=== PATIENT | male | born 1960 | race Caucasian/White ===

== ENCOUNTER → 2024-02-16 15:50 | Outpatient (REF) | payer MEDICARE, SELFPAY | LOC: RAD 15:50 | PROVIDERS: ATTENDING PHYSICIAN Student in an Organized Health Care Education/Training Program | DX: M25.512 Pain in left shoulder (principal); M25.551 Pain in right hip | CPT/HCPCS: 73030; 73502 ==

== ENCOUNTER 2024-02-19 14:04 | Outpatient (RCR) | payer MEDICARE, SELFPAY | END 2024-02-19 23:59 | disposition home or self-care (01) | LOC: RPT 14:04 | PROVIDERS: ATTENDING PHYSICIAN Student in an Organized Health Care Education/Training Program | DX: M25.512 Pain in left shoulder (principal); M25.551 Pain in right hip; Z73.6 Limitation of activities due to disability; M62.81 Muscle weakness (generalized) | CPT/HCPCS: 97110; 97162 ==

== ENCOUNTER 2024-02-28 14:01 | Outpatient (RCR) | payer MEDICARE, SELFPAY | END 2024-02-28 23:59 | disposition home or self-care (01) | LOC: RPT 14:01 | PROVIDERS: ATTENDING PHYSICIAN Student in an Organized Health Care Education/Training Program | DX: M25.512 Pain in left shoulder (principal); M25.511 Pain in right shoulder; Z73.6 Limitation of activities due to disability | CPT/HCPCS: 97110; 97112; 97140 ==

== ENCOUNTER 2025-01-08 11:30 | Emergency (ER) | payer MEDICARE, SELFPAY ==
[2025-01-08 11:45] VITALS: BP 154/101
[2025-01-08 12:18] LABS: Hematocrit 39.9 % (39.0-52.0); Hemoglobin 13.8 g/dL (13.0-18.0); Mean Corp Hgb Conc. 34.6 g/dL (33.0-37.0); Mean Corpuscular Hgb 29.3 pg (27.0-31.0); Mean Corpuscular Volume 84.7 fL (80.0-94.0); Platelet Count 276 10^3/uL (130-400); Red Blood Cell Count 4.71 10^6/uL (4.70-6.10); Red Cell Dist. Width 13.5 % (11.5-14.5); White Blood Cell Count 11.6 10^3/uL (4.8-10.8)
[2025-01-08 12:34] LABS: ALT (SGPT) 15 U/L (0-50); AST (SGOT) 19 U/L (17-59); Albumin 4.3 g/dl (3.5-5.0); Alkaline Phosphatase 78 U/L (38-126); Blood Urea Nitrogen 20 mg/dl (9-20); Calcium 9.5 mg/dl (8.4-10.2); Carbon Dioxide 30 mmol/L (22-30); Chloride 100 mmol/L (98-107); Glucose 113 mg/dl (70-99); Potassium 3.9 mmol/L (3.5-5.1); Sodium 139 mmol/L (135-145); Total Bilirubin 0.7 mg/dl (0.2-1.3); Total Protein 8.1 g/dl (6.3-8.2); eGFR > 60.00
--- NOTE | 2025-01-08 13:17 | ED.GENMED ---
History of Present Illness
General
Chief Complaint: Fall
Source: patient
Exam Limitations: none
Time Seen by Provider: 01/08/25 13:13
Nursing documentation reviewed up to this point in time: agreed with
History of Present Illness
History of Present Illness:
The patient is a 64-year-old man who was brought in by ambulance after 911 was called by family for a well check. Reportedly, according to the patient, his family had tried to get in touch with him and was unable to do so. The patient expresses
that he really does not want to be here and he keeps trying to leave his ED room. The patient reports right-sided rib pain from a fall earlier today. Patient reports that he believes he fell into his mailbox earlier today and hit his head.
Patient denies any severe headache. He believes he may have lost consciousness. Patient is very unclear with his story of what happened earlier today. He denies drugs and alcohol to me. Patient does report that he takes Xanax on a daily basis,
but states that he thinks he lost the bottle of Xanax somewhere in his house. Patient tells me that he recently moved here from [place] and he has doctors including a psychiatrist that he uses from where he used to live. Patient has a bizarre
affect and bizarre behavior. He is a poor historian. However, he is alert and oriented. He reports that he lives with his girlfriend but she is currently in [place] for work. He denies suicidal and homicidal thoughts. Patient tells me that he
has lost weight recently because food tends to get stuck in his throat so he could only eat small bits at a time.
Past History
Past History
ED Past Medical History: Psychiatric
ED Past Surgical History: Orthopedic
Social History
Tobacco: Non-smoker
Alcohol: None (Patient states he used to drink but no longer drinks)
Drug: None (Patient denies)
Personal: Other (Patient discusses having a and girlfriend so is unclear)
Living: with family
Employment: Other
Family History
Family History: Other
Review of Systems
Review of Systems
Allergies reviewed?: Yes
All Other Systems: ROS reviewed and negative except as documented in HPI and ROS
Constitutional: Reports weight loss
EENT: Reports other (Patient states that at times food gets stuck and he is unable to eat as much food as he normally would)
Respiratory: Reports no symptoms
Cardiac: Reports no symptoms
ABD/GI: Reports no symptoms
: Reports no symptoms
Musculoskeletal: Reports other (Right-sided chest wall pain)
Skin: Reports no symptoms
Neurological: Reports no symptoms
Endocrine: Reports no symptoms
Hematologic/Lymphatic: Reports no symptoms
Psychiatric: Reports no symptoms
Phy Exam
Physical Exam
Physical Exam:
Physical Exam
General: Patient has a bizarre affect but no acute distress. Walking around room. Atraumatic appearing face and head
Neck: supple. no meningeal signs. normal psoterior pharynx. Nontender C-spine
Heart: s1/s2 regular rate and rhythm, no murmur. equal radial pulses.
Lungs: no acute respiratory distress. clear bilaterally
Abdomen: normal bowel sounds. not tender. no CVAT. No ecchymoses on chest abdomen or back
Neuro: alert and orientedx3. no focal neurological deficits. Able to follow all commands and answer all questions. At times answers are inconsistent however about history
Skin: no rash
Psychiatric: well kept. interactive and cooperative
Extremities: no edema. no calf tenderness. negative homans. good distal pulses. Nontender and atraumatic upper and lower extremities. Nontender pelvis and hips
Course
Orders/Labs/Results
Orders:
Orders
01/08/25 11:51
Urine Drug Abuse Screen Urgent
Date Specimen was Collected: 01/08/25
Time Specimen was Collected: 11:52
01/08/25 12:01
Alcohol Urgent
CBC/No Diff [Complete Blood Count/No Diff] Urgent
Comprehensive Metabolic Panel Urgent
01/08/25 13:35
CT Cervical Spine W/o Iv Contr Urgent
Comment:
Reason For Exam: fall
CT Head W/o Iv Contrast Urgent
Comment:
Reason For Exam: fall
01/08/25 13:38
CT Chest/abd/pel W Iv Cont Urgent
Comment:
Reason For Exam: fell down steps several times. ab pain, R rib pain
01/08/25 13:39
Electrocardiogram (*1) Urgent
Reason for Study: Fatigue / Weakness
EKG- Treatment ONCE
01/08/25 13:49
Add On- LAB Urgent
Tests Added?: alcohol
Abnormal Lab Results
01/08/25
12:01
WBC 11.6 H 10^3/uL
(4.8-10.8)
MPV 12.0 H fL
(7.4-10.4)
Glucose 113 H mg/dl
(70-99)
01/08/25 12:01
01/08/25 12:01
Vital Signs
Initial and Last Documented VS:
Initial Vital Signs
Temp Pulse Resp BP Pulse Ox
98.1 F 81 16 154/101 98
01/08/25 11:45 01/08/25 11:45 01/08/25 11:45 01/08/25 11:45 01/08/25 11:45
Last Documented Vital Signs
Temp Pulse Resp BP Pulse Ox
98.1 F 78 20 154/72 99
01/08/25 11:45 01/08/25 16:54 01/08/25 16:54 01/08/25 16:54 01/08/25 16:54
MDM/Problems Addressed
Differential Diagnosis Includes:
Concussion, intracranial bleed, rib fractures, drug alcohol use, acute psychiatric issue
MDM/Problems Addressed:
Patient presents with acute right chest wall pain after a fall earlier
Chronic conditions affecting care:
Likely chronic psychiatric issues
Acute Exacerbation and/or Progression of Chronic Illness:
Acute exacerbation of chronic psychiatric issues
*Radiology
Radiology exam reviewed: radiology read reviewed
*Pulse Oximetry
Patient hypoxic: no
*EKG
Interpreted by ED Provider?: Yes
Interpretation: normal
Comparison EKG: no comparison EKG present
Rate: normal
[place]: normal axis
Interval: normal interval
QRS Pattern: normal QRS
Ischemia: no ischemia
*Application Support Lead Interpretation
Rate: normal
Interpretation: normal
Rhythm: sinus
*Critical Care Note
Total Time (30-74mins, 75-104mins- exclusive of procedures): Not Applicable
Data Reviewed
Source: patient
Update Note
Update Note:
I spoke extensively to the patient about my concerns of possible substance abuse and possible acute psychiatric issues, given his bizarre affect and poor ability to give history of recent events. Patient refuses to give urine for urine drug screen.
I offered patient a psychiatric evaluation with crisis team, however, he adamantly wants to go home. He remains alert and oriented x 3. He remains calm. I have not observed him to have any hallucinations. Patient tells me that he has a team of
doctors where he used to live in [place] and is not interested in any primary care doctor nor psychiatrist in the [place] area. I do not feel I can hold him against as well.
ED Attending Note
-
Portions of this chart may have been created with voice recognition software.� Occasional wrong word or��sound alike� substitutions may have occurred due to the inherent limitations of voice recognition software.
Discharge Plan
Departure
Patient Disposition: Home (Routine Discharge)
Date of Disposition: 01/08/25
Time of Disposition: 16:43
Patient with high blood pressure during this ER visit?: Yes
Condition: Good
Covid-19: Not Applicable
Discharge Problem:
Multiple rib fractures, Bilateral pleural effusion
Instructions: Pleural effusion, BLOOD PRESSURE
Referrals:
UNKNOWN - PT DOES,NOT KNOW [Family Provider] -
Activity Restrictions/Additional Instructions:
Please return with any fever, shortness of breath or any safety concerns.
We offered you a mental health evaluation, as well as social work evaluation, and you did not want it.
Return anytime if you feel unsafe
Interventions
Interventions:
*Risk Screen - Suicide Last Done: 01/08/25 11:45
*Neglect/Abuse Screening Last Done: 01/08/25 11:45
*Nursing Disposition Last Done: 01/08/25 16:56
ED-Musculoskeletal Assessment Last Done: 01/08/25 12:50
ED- Neurological Assessment Last Done: 01/08/25 12:50
Discharge Date and Time
Discharge Date/Time: 01/08/25 16:58
Print Language: SLOVAK
[2025-01-08 13:53] VITALS: BP 150/72
[2025-01-08 14:34] LABS: Alcohol None Detected
[2025-01-08 16:54] VITALS: BP 154/72
== END 2025-01-08 16:58 | disposition home or self-care (01) ==
LOC: EMR 11:30
PROVIDERS: Emergency Medicine; EMERGENCY PHYSICIAN Emergency Medicine
DX: S22.41XA Multiple fractures of ribs, right side, initial encounter for closed fracture (principal); J90 Pleural effusion, not elsewhere classified; W19.XXXA Unspecified fall, initial encounter; R46.2 Strange and inexplicable behavior
CPT/HCPCS: 99284; 70450; 71260; 72125; 74177; 80053; 82077; 85027; 93005; Q9967